=== PATIENT | female | born 1965 | race Caucasian/White ===

== ENCOUNTER 2016-07-09 11:39 | Emergency (ER) | payer OTHER ==
[~2016-07-09] VITALS: Ht 172.7 cm; Wt 182.0 kg
[2016-07-09 11:41] VITALS: BP 164/103; PULSE 80; RESP 17; TEMP 98.8; O2SAT 99
[2016-07-09] MEDS ORDERED: SODIUM CHLOR 0.9% 1000 ML INJ 1,000 ML IV SCH (11:56)
[2016-07-09] MEDS ORDERED: SODIUM CHLORIDE 0.9% FLUSH 10 ML FLUSH IV FLUSH PRN (12:00)
--- NOTE | 2016-07-09 12:00 | PD ---
HPI Chief Complaint: Complaint Time Seen by Provider: 11:59 Travel History International Travel<30 days: No Contact w/Intl Traveler<30days: No Traveled to known affect area: No History of Present Illness HPI 50-year-old female with history of hypertension presents to the emergency department for evaluation of possible urinary tract infection. The patient states that she's had lightheadedness, weakness, subjective fever and chills for 2 days. States that she's also had numbness and tingling in her feet bilaterally and worse in the left foot and leg. States that this is been going on for about a month and a half. States that she thinks is secondary to taking Cipro. States that she had a urinary tract infection about 1.5 months ago and was started on Cipro by her PCP. States after that she started having this numbness and tingling. States that she saw her doctor 2 days ago and was told she had a recurrent urinary tract infection and started on Cipro and thinks that her paresthesias have worsened since then. She states she googled the adverse effects of Cipro and it makes her very nervous to take this medication. She denies any chest pain, shortness of breath, cough, cold symptoms, abdominal pain, nausea, vomiting, diarrhea, headache. No recent travel or sick contacts. PCP Dr. Umana. [facility] Past Medical History ?: Not Social History Tobacco Use: No Allergies-Medications (Allergen,Severity, Reaction): Coded Allergies: No Known Allergies (Unverified , 07/09/16) Review of Systems Except as stated in HPI: all other systems reviewed are Neg Physical Exam Narrative GENERAL: Obese female patient in no acute distress who is nontoxic appearing. SKIN: Warm and dry. HEAD: Normocephalic and atraumatic. EYES: No injection, drainage, or hyphema noted. PERRLA. EOMI. ENT: No nasal drainage noted. Oropharynx is clear. NECK: Supple and the trachea is midline. CARDIOVASCULAR: Regular rate and rhythm. RESPIRATORY: Breath sounds are equal bilaterally with no accessory muscle use, wheezing, rhonchi, or crackles. GASTROINTESTINAL: Abdomen is soft, non-tender, and nondistended. MUSCULOSKELETAL: No obvious deformities, swelling, cyanosis, or ecchymosis is present throughout the upper and lower extremities. Patient has full range of motion without any signs of neurovascular compromise. DP pulses are 2+ bilaterally. Sensation is intact. NEUROLOGICAL: Awake, alert, and oriented. Normal speech and gait. Cranial nerves are grossly intact. Data Data Last Documented VS Vital Signs Date Time Temp Pulse Resp B/P Pulse Ox O2 Delivery O2 Flow Rate FiO2 07/09/16 12:09 75 07/09/16 11:41 98.8 17 164/103 99 Orders Complete Blood Count With Diff (07/09/16 11:56) Comprehensive Metabolic Panel (07/09/16 11:56) Urinalysis - C+S If Indicated (07/09/16 11:56) Iv Access Insert/Monitor (07/09/16 11:56) Ecg Monitoring (07/09/16 11:56) Sodium Chlor 0.9% 1000 Ml Inj (Ns 1000 M (07/09/16 11:56) Sodium Chloride 0.9% Flush (Ns Flush) (07/09/16 12:00) Electrocardiogram (07/09/16 11:56) Urine Culture (07/09/16 12:45) Labs Laboratory Tests Test 07/09/16 07/09/16 12:03 12:45 White Blood Count 11.5 TH/MM3 Red Blood Count 5.55 MIL/MM3 Hemoglobin 12.8 GM/DL Hematocrit 41.3 % Mean Corpuscular Volume 74.4 FL Mean Corpuscular Hemoglobin 23.0 PG Mean Corpuscular Hemoglobin 30.9 % Concent Red Cell Distribution Width 17.4 % Platelet Count 414 TH/MM3 Mean Platelet Volume 8.4 FL Neutrophils (%) (Auto) 60.9 % Lymphocytes (%) (Auto) 29.0 % Monocytes (%) (Auto) 6.8 % Eosinophils (%) (Auto) 2.4 % Basophils (%) (Auto) 0.9 % Neutrophils # (Auto) 7.0 TH/MM3 Lymphocytes # (Auto) 3.3 TH/MM3 Monocytes # (Auto) 0.8 TH/MM3 Eosinophils # (Auto) 0.3 TH/MM3 Basophils # (Auto) 0.1 TH/MM3 CBC Comment AUTO DIFF Differential Comment AUTO DIFF CONFIRMED Sodium Level 140 MEQ/L Potassium Level 4.2 MEQ/L Chloride Level 106 MEQ/L Carbon Dioxide Level 24.9 MEQ/L Anion Gap 9 MEQ/L Blood Urea Nitrogen 11 MG/DL Creatinine 0.90 MG/DL Estimat Glomerular Filtration 66 ML/MIN Rate Random Glucose 90 MG/DL Calcium Level 9.3 MG/DL Total Bilirubin 0.5 MG/DL Aspartate Amino Transf 14 U/L (AST/SGOT) Alanine Aminotransferase 18 U/L (ALT/SGPT) Alkaline Phosphatase 83 U/L Total Protein 7.5 GM/DL Albumin 3.5 GM/DL Urine Color YELLOW Urine Turbidity HAZY Urine pH 6.0 Urine Specific [place] 1.013 Urine Protein NEG mg/dL Urine Glucose (UA) NEG mg/dL Urine Ketones NEG mg/dL Urine Occult Blood NEG Urine Nitrite NEG Urine Bilirubin NEG Urine Urobilinogen LESS THAN 2.0 MG/DL Urine Leukocyte Esterase LARGE Urine RBC 10 /hpf Urine WBC 9 /hpf Urine Squamous Epithelial 16 /hpf Cells Urine Transitional Epithelial <1 /hpf Cells Urine Bacteria RARE /hpf Urine Hyaline Casts 1 /lpf Urine Mucus FEW /lpf Microscopic Urinalysis Comment CULTURE INDICATED MDM Medical Decision Making Medical Screen Exam Complete: Yes Emergency Medical Condition: Yes Differential Diagnosis UTI versus dehydration versus electrolyte abnormality versus medication reaction Narrative Course 50-year-old female presents to the emergency department for evaluation of generalized weakness, possible urinary tract infection and numbness and tingling in her feet. Patient is afebrile, vital signs are stable. Physical examination is essentially unremarkable. The patient thinks that since taking Cipro she's developed these paresthesias and she is concerned that it is secondary to the medication. IV access is obtained, labs have been drawn and sent. Patient is placed on cardiac telemetry and pulse oximetry monitoring. EKG shows sinus rhythm with no acute ST elevations or depressions. CBC shows an elevated white blood count of 11.5, otherwise unremarkable. CMP is unremarkable. Urinalysis shows large leukocyte esterase, 10 red blood cells, 9 red blood cells , rare bacteria, few mucus. The patient's urine shows a mild urinary tract infection. She has remained stable without complaint while here in the ED. We will change her antibiotic from Cipro to Keflex. She is instructed to follow-up with her PCP. Patient verbalizes understanding and agreement with treatment plan. I discussed the case with my attending physician Dr. Hill who is aware of the patients history, physical examination findings, and treatment plan. Diagnosis Primary Impression: Urinary tract infection Qualified Code: N39.0 - Urinary tract infection with hematuria, site unspecified Referrals: Primary Care Physician Patient Instructions: General Instructions, Urinary Tract Infection in Women ( ED) Additional Instructions: Stop Cipro. Take medication as prescribed with food and a full glass of water. Follow-up with your Primary Care Physician. Return to the ED for any acute worsening of symptoms. Med/Other Pt SpecificInfo: Prescription(s) given Scripts Cephalexin (Keflex)500 Mg [id number] Mg PO Q12H 7 Days Ref 0 Prov:Elaina Hill MD 07/09/16 Disposition: 01 DISCHARGE HOME Condition: Stable Masha Rao Jul 09, 2016 12:00
[2016-07-09 12:20] LABS: BASOPHIL # 0.1 TH/MM3 (0-0.2); BASOPHIL % 0.9 % (0.0-2.0); EOSINOPHIL # 0.3 TH/MM3 (0-0.4); EOSINOPHIL % 2.4 % (0.0-4.0); HEMATOCRIT 41.3 % (35.0-46.0); LYMPHOCYTE # 3.3 TH/MM3 (1.0-4.8); MEAN CELL VOLUME 74.4 FL (80.0-100.0); MEAN CORPUSCULAR HGB CONC 30.9 % (32.0-36.0); MONO % 6.8 % (0.0-8.0); NEUT % 60.9 % (16.0-70.0); PLATELET COUNT 414 TH/MM3 (150-450); RED BLOOD COUNT 5.55 MIL/MM3 (4.00-5.30); RED CELL DISTRIBUTION WIDTH 17.4 % (11.6-17.2); WHITE BLOOD COUNT 11.5 TH/MM3 (4.0-11.0)
[2016-07-09 12:22] LABS: HEMO FLAGS AUTO DIFF
[2016-07-09 12:33] LABS: ALT (GPT) 18 U/L (10-53); ANION GAP 9 MEQ/L (5-15); AST (GOT) 14 U/L (15-37); BICARBONATE 24.9 MEQ/L (21.0-32.0); BLOOD UREA NITROGEN 11 MG/DL (7-18); CHLORIDE 106 MEQ/L (98-107); GLOMERULAR FILTRATION RATE 66 ML/MIN (>89); POTASSIUM 4.2 MEQ/L (3.5-5.1); SODIUM (NA) 140 MEQ/L (136-145)
[2016-07-09 12:36] LABS: ALKALINE PHOSPHATASE 83 U/L (45-117); TOTAL BILIRUBIN ADULT 0.5 MG/DL (0.2-1.0)
[2016-07-09 13:07] LABS: SCAN/DIFF AUTO DIFF CONFIRMED
[2016-07-09 13:17] LABS: BACTERIA, URINE RARE /hpf; BLOOD, URINE NEG (NEG); COMMENT (UR) CULTURE INDICATED; CULTURE IF INDICATED CULTURE INDICATED; GLUCOSE,URINE NEG (NEG); HYALINE CAST, URINE 1 /lpf (RARE); KETONE, URINE NEG (NEG); MUCUS URINE FEW /lpf (OCC); NITRITE,URINE NEG (NEG); SQUAMOUS EPITHELIAL CELL URINE 16 /hpf (0-5); TRANSITIONAL EPI CELLS, URINE <1 /hpf; URINE COLOR YELLOW (YELLW/STRAW)
[2016-07-09] MEDS ORDERED: CEPH-460 PO (13:21)
--- NOTE | 2016-07-09 18:50 | EKG ---
Date Performed: 07/09/2016 Time Performed: 12:11:38 PTAGE: 50 years EKG: Sinus rhythm LOW QRS VOLTAGE IN PRECORDIAL LEADS BORDERLINE ECG NO PREVIOUS TRACING DOCTOR: Amberly Soto Interpretating Date/Time 07/09/2016 18:48:55
== END 2016-07-09 13:52 | disposition home or self-care (01) ==
LOC: NEPD 11:39
DX: N39.0 Urinary tract infection, site not specified (principal); B96.89 Other specified bacterial agents as the cause of diseases classified elsewhere; R31.9 Hematuria, unspecified; I10 Essential (primary) hypertension
CPT/HCPCS: 80053; 81001; 85025; 87086; 93005; 99283; J7030